=== PATIENT | male | born 1990 | race Caucasian/White ===

== ENCOUNTER 2019-08-03 08:22 | Emergency (ER) | payer BC, SELFPAY ==
[2019-08-03 08:35] VITALS: BP 142/90; PULSE 99; RESP 16; TEMP 37.7; O2SAT 96
--- NOTE | 2019-08-03 08:40 | ED.GENADULT ---
HPI - General Adult General Chief complaint: Upper Respiratory Infection Stated complaint: Congestion,Cough Time Seen by Provider: 08/03/19 08:41 Source: patient Mode of arrival: ambulatory Limitations: no limitations History of Present Illness HPI narrative: 29-year-old male patient presents to the [facility] with complaints of cold symptoms for the past 5 days. Patient states that his daughter was recently diagnosed with influenza B. Patient states he has had fevers that is spiked up to 102. Patient states he is also had a sore throat that has been pretty consistent. Patient also complaining of a headache as well as little bit of a runny nose. Denies any ear pain. Denies any chest pain or shortness of breath. Denies any abdominal pain, nausea, vomiting or diarrhea. Patient states he has been taking [id number] TheraFlu and Tylenol for his symptoms. Patient denies getting a flu shot this year. Related Data Home Medications Medication Instructions Recorded Confirmed No Home Medications 06/28/19 06/28/19 Allergies Allergy/AdvReac Type Severity Reaction Status Date / Time No Known Allergies Allergy Verified 08/03/19 08:55 Review of Systems Review of Systems: Narrative: CONSTITUTIONAL: Positive subjective fever, chills, body aches and sweats. EYES: Denies visual changes, redness, or discharge. ENT: Positive clear rhinorrhea, congestion, sore throat, denies otalgia. CARDIOVASCULAR: Denies chest pain, palpitations, or edema. RESPIRATORY: Denies cough or dyspnea. GASTROINTESTINAL: Denies abdominal pain, nausea, vomiting, or diarrhea. GENITOURINARY: Denies dysuria or hematuria. SKIN: Denies rash or itching. MUSCULOSKELETAL: Denies back pain, joint pain, or myalgia. NEUROLOGIC: Positive headaches. Denies lightheadedness or dizziness. Positive fatigue and weakness. PSYCH: denies anxiety or depression. [facility] Past Medical History Medical History Gynecomastia, male Hernia Shoulder amputation status Family History Family History Grandparent Acute myocardial infarction Other Hypertension Social History Social History Smoking status: Never smoker Alcohol intake: current Gender identity (if verbalized by the patient): Male Comments At the time of my signature I agree with nursing past medical history, surgical, social, and family history. There is no relevant family history pertinent to the presenting complaint. Exam Narrative: Exam Narrative: GENERAL: ill-appearing, well-nourished, and in no acute distress. HEAD: Normocephalic, atraumatic. No tenderness noted to frontal maxillary sinuses on palpation. EYES: PERRLA and EOMI. ENT: Nares with erythema and edema noted bilaterally, no rhinorrhea or epistaxis. Mucous membranes moist. Posterior pharynx with slight erythema but no tonsillar large but no exudates or lesions present. Bilateral TMs are clear no erythema or foreign bodies in the canal. NECK: Supple. No lymphadenopathy CHEST: Clear to auscultation. No respiratory distress. HEART: Regular rate and rhythm. No murmur heard. Normal peripheral pulses. ABDOMEN: Soft, nontender, nondistended, normal active bowel sounds. EXTREMITIES: Normal range of motion. No edema. SKIN: Warm, dry, no rash. NEURO: No focal deficits. Alert and oriented x3. Course Reevaluation(s) Reevaluation #1: Notify patient that he is positive today for influenza B but negative for strep. Discussed with him I am to go ahead and take him off of work for the rest of the day so he can rest. Discussed with him his go to be a lot of symptomatic treatment since he is out of the window for antivirals including [id number] Tylenol Motrin, increase fluids and increase his rest. Discussed with patient he can also use of Flonase to help with nasal congestion along with a kaila
== END 2019-08-03 09:00 | disposition home or self-care (01) ==
PROVIDERS: Emergency Provider Nurse Practitioner Family; PCP Internal Medicine
DX: J10.1 Influenza due to other identified influenza virus with other respiratory manifestations (principal)
CPT/HCPCS: 87081; 87804; 87880; 99213; G0463

== ENCOUNTER 2020-02-28 09:11 | Outpatient (CLI) | payer BC, SELFPAY ==
--- NOTE | ~2020-02-28 | XR_ITS ---
EXAMINATION: XR chest 2V DATE: 02/28/2020 09:35 INDICATION: Shortness of breath. Chest congestion. TECHNIQUE: PA and lateral views of the chest were obtained. COMPARISON: None FINDINGS: The lungs are clear with no focal airspace opacities, pulmonary edema, pleural effusion or pneumothor ax. The cardiomediastinal silhouette is normal. Mild S-shaped thoracic scoliosis. IMPRESSION: 1. No acute cardiopulmonary disease. Reviewed, dictated and finalized at location B.
== END 2020-02-28 09:12 | disposition home or self-care (01) ==
LOC: ANHIMG 09:17
PROVIDERS: PCP Internal Medicine; Visit Provider Nurse Practitioner
DX: R06.02 Shortness of breath (principal)
CPT/HCPCS: 71046